=== PATIENT | female | born 1950 | race Caucasian/White ===

== ENCOUNTER 2016-10-12 12:52 | Emergency (ER) | payer MEDICARE, BC | END 2016-10-12 12:58 | disposition left against medical advice (07) | LOC: ER 12:52 | DX: Z53.9 Procedure and treatment not carried out, unspecified reason (principal); S09.90XA Unspecified injury of head, initial encounter ==

== ENCOUNTER → 2016-11-10 | Outpatient (CLI) | payer MEDICARE, BC ==
--- NOTE | 2016-11-10 14:20 | WOMENS IMAGING REPORT ---
EXAM DESCRIPTION: BILAT DIAGNOSTIC MAMMO W/CAD; U/S BREAST UNILATERAL, COMPL COMPLETED DATE/TIME: 11/10/2016 12:23 pm; 11/10/2016 1:25 pm REASON FOR STUDY: DISORDER OF BREAST IMPLANTS BILAT. N64.51; LT BREAST N64.51 T85.9XXA UNSP COMPLIC ATION OF INTERNAL PROSTH DEV/GRFT, INIT N64.51 INDURATION OF BREAST COMPARISON: None. TECHNIQUE: Bilateral whole breast CC and MLO mammograms, left breast 90 mediolateral view mammogram , bilateral implant displaced CC and MLO mammograms. Because of the presentation of left breast firmness, ultrasound was also performed on the left side. LIMITATIONS: None. FINDINGS: IMPLANTS: Bilateral subglandular implants. Dense peripheral rim implant calcification lef t greater than right. RIGHT BREAST MASSES: No suspicious masses. CALCIFICATIONS: No new or suspicious calcifications. ARCHITECTURAL DISTORTION: None. DEVELOPING DENSITY: None. ASYMMETRY: None noted. OTHER: No other significant findings. LEFT BREAST MASSES: No suspicious masses. CALCIFICATIONS: No new or suspicious calcifications. ARCHITECTURAL DISTORTION: None. DEVELOPING DENSITY: None. ASYMMETRY: None noted. OTHER: No other significant findings. Read with the assistance of CAD, R2 repairer and checker version 9.2 Left breast ultrasound: Ultrasound of the left breast was performed. No cysts. No solid nodules or worrisome acoustic absor ption in the breast parenchyma itself. There is dense peripheral capsular calcification around the l eft breast implant. IMPRESSION: No mammographic evidence for malignancy right breast. No mammographic or sonographic evidence for malignancy left breast. BREAST DENSITY: b. There are scattered areas of fibroglandular density. BIRAD: 2 Benign findings. RECOMMENDATION: RECOMMENDED FOLLOW UP: Please continue bilateral mammography in October 2017. Consider bilateral tomosynthesis SPECIFIC INTERVENTION/IMAGING/CONSULTATION RECOMMENDED:No additional intervention/ imaging/consultati on needed at this time. COMMUNICATION:Patient notified by letter COMMENT: The patient has been notified of the results by letter per MQSA requirements. Additional no tification policies are in place for contacting patient with suspicious or incomplete findings. Quality ID #[id number]: The [employer] recommends an annual screening mammogram for women aged 40 years or over. This facility utilizes a reminder system to ensure that all patients receive reminder letters, and/or direct phone calls for appointments. This includes reminders for routine scr eening mammograms, diagnostic mammograms, or other Breast Imaging Interventions when appropriate. Th is patient will be placed in the appropriate reminder system. The [employer] (ACR) has developed recommendations for screening MRI of the breast s in certain patient populations, to be used in conjunction with mammography. Breast MRI surveillanc e may be appropriate for women with more than 20% lifetime risk of developing breast cancer as deter mined by genetic testing, significant family history of the disease, or history of mantle radiation f or Hodgkins Disease. ACR Practice Guidelines 2008. TECHNICAL DOCUMENTATION: FINDING NUMBER: (1) ASSESSMENT: (1) JOB IDl [id number] [employer]- All Rights Reserved
== END ==
LOC: WI 11:52
PROVIDERS: ATTEND Physician Assistant
DX: T85.9XXA Unspecified complication of internal prosthetic device, implant and graft, initial encounter (principal); N64.51 Induration of breast
CPT/HCPCS: 76641; G0204; 77066

== ENCOUNTER → 2018-10-28 | Outpatient (CLI) | payer MEDICARE, BC ==
--- NOTE | 2018-10-28 08:18 | WOMENS IMAGING REPORT ---
EXAM DESCRIPTION: U/S ABDOMEN TOTAL COMPLETED DATE/TIME: 10/28/2018 8:00 am REASON FOR STUDY: R10.13 EPIGASTRIC PAIN R10.13 EPIGASTRIC PAIN COMPARISON: None. TECHNIQUE: Dynamic and static grayscale images acquired of the abdomen and recorded on PACS. Additio nal selected color Doppler and spectral images recorded. Note: Study does not meet criteria for complete doppler/duplex scan LIMITATIONS: None. FINDINGS: PANCREAS: Majority the pancreas is obscured by overlying bowel gas. LIVER: No masses. Echotexture normal. LIVER VASCULATURE: Normal directional flow of the main portal vein and hepatic veins. GALLBLADDER: No stones. Normal wall thickness. No pericholecystic fluid. ULTRASOUND-DETECTED MAY'S SIGN: Negative. INTRAHEPATIC DUCTS AND COMMON DUCT: CBD and intrahepatic ducts normal caliber. No filling defects. INFERIOR VENA CAVA: Obscured by overlying bowel gas. AORTA: Obscured by overlying bowel gas. RIGHT KIDNEY: Normal size. Normal echogenicity. No solid or suspicious masses. No hydronephros is. No calcifications. LEFT KIDNEY: Normal size. Normal echogenicity. No solid or suspicious masses. No hydronephrosi s. No calcifications. SPLEEN: Normal size. No solid masses. PERITONEAL AND PLEURAL SPACES: No ascites or effusions. OTHER: No other significant finding. IMPRESSION: Limited study due to overlying bowel gas. No acute findings. TECHNICAL DOCUMENTATION: JOB ID: [id number] [employer]- All Rights Reserved Reading location - IP/workstation name: [email or web address]
== END ==
LOC: WI 07:28
PROVIDERS: ATTEND Internal Medicine Gastroenterology
DX: R10.13 Epigastric pain (principal)
CPT/HCPCS: 76700

== ENCOUNTER 2019-01-12 20:45 | Emergency (ER) | payer MEDICARE, BC ==
[2019-01-12] MEDS ORDERED: DEXAMETHASONE SOD PHOS INJ 10 MG/1 ML VIAL IM ONE (23:04)
[2019-01-12] MEDS ORDERED: LORATADINE 10 MG TABLET PO ONE (23:04)
[2019-01-12] MEDS ORDERED: FAMOTIDINE 20 MG TABLET PO ONE (23:04)
--- NOTE | 2019-01-12 23:17 | ER Document Report ---
ED Skin Rash/Insect Bite/Abscs - General Chief Complaint: Bee Sting Stated Complaint: WASP STING Time Seen by Provider: 01/12/19 22:27 Primary Care Provider: MIQU[facility] GAY[facility] [Provider Group] - Follow up tomorrow POLLY YARBROUGH FNP-C [Primary Care Provider] - Follow up as needed Mode of Arrival: Ambulatory Information source: Patient Notes: 68-year-old female presented to ED for complaint of 6 wants things to her left arm of about 1300. She states she was stung multiple times on the hand and forearm. She has swelling to her hand forearm wrist. She does have full range of motion of her hand. She states Benadryl often makes her jittery so she does not like to take it. She states she did take some Tylenol at home but no other medications. She states she did use some ice on it but she became scared before going to bed she wanted to be checked out. Patient is alert oriented respirations regular and unlabored there is no swelling to her lips or tongue no shortness of breath and no feeling like her throat is swelling. She said she knows the people have had a anaphylactic reaction and she is not having one. TRAVEL OUTSIDE OF THE [place] IN LAST 30 DAYS: No - HPI Patient complains to provider of: Insect sting Onset: This afternoon Onset/Duration: Gradual Severity: Mild Pain Level: 2 Skin Character: Erythema - Bee stings to left hand and forearm Skin Temperature: Warm Quality of rash: Burning Identify cause: Yes - Bee stings Exacerbated by: Denies Relieved by: Denies Similar symptoms previously: Yes Recently seen / treated by doctor: No - Related Data Allergies/Adverse Reactions: acetaminophen [From Percocet] Allergy (Verified 04/14/16 11:40) oxycodone [From Percocet] Allergy (Verified 04/14/16 11:40) Past Medical History - General Information source: Patient - Social History Smoking Status: Never Smoker Chew tobacco use (# tins/day): No Frequency of alcohol use: Rare Drug Abuse: None Family History: Reviewed & Not Pertinent, Hypertension Patient has suicidal ideation: No Patient has homicidal ideation: No - Past Medical History Cardiac Medical History: Reports: Hx Hypertension Pulmonary Medical History: Reports: None EENT Medical History: Reports: Eyes - Glaucoma Neurological Medical History: Reports: None Endocrine Medical History: Reports: Hx Hypothyroidism Renal/ Medical History: Reports: None Malignancy Medical History: Reports: None GI Medical History: Reports: Hx Gastroesophageal Reflux Disease Musculoskeletal Medical History: Reports Hx Arthritis Skin Medical History: Reports None Psychiatric Medical History: Reports: Hx Anxiety, Hx Depression Traumatic Medical History: Reports: None Infectious Medical History: Reports: None Past Surgical History: Reports: Other - Breast augmentation - Immunizations Hx Diphtheria, Pertussis, Tetanus Vaccination: Yes Review of Systems - Review of Systems Constitutional: No symptoms reported EENT: No symptoms reported. denies: Throat pain, Difficulty swallowing, Mouth swelling Cardiovascular: No symptoms reported Respiratory: No symptoms reported. denies: Cough, Short of breath, Wheezing Gastrointestinal: No symptoms reported Genitourinary: No symptoms reported Female Genitourinary: No symptoms reported Musculoskeletal: No symptoms reported Skin: Other - Swelling redness to the left hand and forearm from red wasp stings x6 Hematologic/Lymphatic: No symptoms reported Neurological/Psychological: No symptoms reported -: Yes All other systems reviewed and negative Physical Exam - Vital signs Vitals: Temp Pulse Resp BP Pulse Ox 97.8 F 77 18 142/78 H 99 01/12/19 20:49 01/12/19 20:49 01/12/19 20:49 01/12/19 20:49 01/12/19 20:49 Interpretation: Normal - General General appearance: Appears well, Alert - HEENT Head: Normocephalic, Atraumatic Eyes: Normal Pupils: PERRL Ears: Normal External canal: Normal Tympanic membrane: Normal Sinus: Normal Nasal: Normal Mouth/Lips: Normal Mucous membranes: Normal Pharynx: Normal Neck: Normal - Respiratory Respiratory status: No respiratory distress Chest status: Nontender Breath sounds: Normal Chest palpation: Normal - Cardiovascular Rhythm: Regular Heart sounds: Normal auscultation Murmur: No - Abdominal Inspection: Normal Distension: No distension Bowel sounds: Normal Tenderness: Nontender Organomegaly: No organomegaly - Back Back: Normal, Nontender - Extremities General upper extremity: Normal inspection, Nontender, Normal color, Normal ROM, Normal temperature General lower extremity: Normal inspection, Nontender, Normal color, Normal ROM, Normal temperature, Normal weight bearing. No: Fernanda's sign - Neurological Neuro grossly intact: Yes Cognition: Normal Orientation: AAOx4 Oz Coma Scale Eye Opening: Spontaneous Oz Coma Scale Verbal: Oriented Oz Coma Scale Motor: Obeys Commands Oz Coma Scale Total: 15 Speech: Normal Motor strength normal: LUE, RUE, LLE, RLE Sensory: Normal - Psychological Associated symptoms: Normal affect, Normal mood - Skin Skin Temperature: Warm Skin Moisture: Dry Skin Color: Normal Location of irregularity: Extremities - Left hand and forearm Character of irregularity: Erythematous Irregularity with: Swelling, Tenderness Course - Re-evaluation Re-evalutation: 01/12/19 23:25 Patient states she was stung by red wasp about 6 times around 1 PM. She states she has had burning and pain with swelling and redness to the left hand and forearm. She was treated with Decadron IM, Pepcid, Claritin, and Tylenol in the emergency room. She is not having any signs or symptoms of a anaphylactic reaction. She was instructed to follow-up with her primary care tomorrow. Patient did verbalize understanding and agreement with treatment plan. Patient was discharged home. - Vital Signs Vital signs: Temp Pulse Resp BP Pulse Ox 98.0 F 67 18 136/68 H 100 01/12/19 23:32 01/12/19 23:32 01/12/19 23:32 01/12/19 23:32 01/12/19 23:32 Discharge - Discharge Clinical Impression: Bee sting Qualifiers: Encounter type: initial encounter Injury intent: accidental or unintentional Qualified Code(s): T63.441A - Toxic effect of venom of bees, accidental (unintentional), initial encounter Condition: Stable Disposition: HOME, SELF-CARE Additional Instructions: Insect Sting You've been stung by an insect. The venom can cause pain, redness, and swelling. Right after the sting, we sometimes use adrenaline to reduce the reaction to the venom. This also stops any allergic reaction. You should apply cold compresses, rest and elevate the affected part, and take antihistamines. A more severe, itchy red swelling sometimes develops the next day. This is a local allergic reaction to the venom. This local allergy isn't dangerous. We treat it with cortisone-type medicine and antihistamines. Sometimes we use antibiotics if we're worried about infection. If you develop a fever, chills, a red streak, or swollen glands in the area of the bite, infection may be starting. Return at once. Insect stings from the bee and hornet family may cause a severe allergic reaction. Symptoms include hoarseness, shortness of breath, general redness of the skin, general itching, or lightheadedness. If any of these symptoms occur, you'll be treated with adrenalin and cortisone-like steroids. You should carry an "Anaphylaxis Kit" with you in the summer months so you can administer these medications to yourself before getting emergency medical care. STEROID MEDICATION INJECTION: You have been given an injection of medicine of the cortisone/steroid class. This medication is used to control inflammation or allergy. It is often continued as a pill for a short period of time, until the acute process subsides. There are usually no side effects from short-term use of cortisone-like medications. Some persons feel an increased sense of well-being and are not sleepy at bedtime. Long-term use of cortisone medications is best avoided, unless required for a severe condition. If your condition does not remit, or relapses after the course of corticosteroid medication, you should consult your physician. ACID-SUPPRESSING MEDICATION: You have a prescription for medicine which reduces the stomach's secretion of acid. Examples include Zantac, Tagament, and Pepcid. These drugs are often used to allow healing of ulcers or esophagitis. They may be needed to prevent recurrence of ulcers in some patients, or to prevent damage from acid reflux in the esophagus. Take all medication as prescribed, even after the pain is gone. Regular antacids may be added as needed if you have symptoms while taking this medicine. These medications sometimes are prescribed for allergic reactions because they have anti-histaminic effects and relieve the rash and itching of the reaction. There are usually no side effects from this medication. But, in rare cases and particularly in the elderly, serious problems can occur. Contact your doctor if there is fever, rash, hallucinations, confusion, or unusual bruising. Contact your doctor at once if you develop lightheadedness, black or bloody stool, or bloody vomitus. ANTIHISTAMINES: An antihistamine has been given and/or prescribed to control your symptoms. Antihistamines are used for many reasons, including itching, watering eyes, runny nose, allergic swelling, hives, and insect stings. Antihistamines may cause drowsiness, especially with the first dose. Do not operate machinery or drive while under the effects of the medication. Other common side effects include dry mouth and eyes. In older persons, antihistamines can occasionally cause urinary retention, constipation, and trouble focusing the eyes. Do not combine the medication with alcohol, or with any other medication without talking to your doctor. USE OF DIPHENHYDRAMINE: The use of diphenhydramine (Benadryl) has been recommended to control allergic symptoms. The 25 mg strength is available over- the-counter, as well as the elixir. This antihistamine is used for many symptoms. It's useful for itching, watering eyes and nose, allergic swelling, hives, and insect stings. The medication can be repeated four times daily. Age Elixir (12.5 mg/tsp) 25 mg pill 2-3 yr 1/2 tsp 4-8 yr 1 tsp 9-14 yr 2 tsp one tab adult 1-2 tabs Antihistamines may cause drowsiness, especially with the first dose. Do not operate machinery or drive while under the effects of the medication. Do not combine the medication with alcohol, or with any other medication without talking to your doctor. Ice & Elevation Apply ice packs frequently against the painful area. Many different schedules are recommended, such as "20 minutes on, 20 minutes off" or "one hour ice, two hours rest." If you need to work, you may need to go longer between ice treatments. You should plan to have the area ice packed AT LEAST one-fourth of the time. The ice should be applied over the wrap, tape, or splint, or over a layer of cloth -- not directly against the skin. Some ice bags have a built-in cloth and can be put directly on the skin. Your injured part should be elevated as much as possible over the next 48 hours. Try to keep the injury above the level of the heart. Avoid use of the injured area. Elevation and rest will decrease the swelling. FOLLOW-UP CARE: If you have been referred to a physician for follow-up care, call the physicians office for an appointment as you were instructed or within the next two days. If you experience worsening or a significant change in your symptoms, notify the physician immediately or return to the Emergency Department at any time for re-evaluation. Forms: Elevated Blood Pressure Referrals: POLLY YARBROUGH, DIFFUSION OPERATOR-C [Primary Care Provider] - Follow up as needed [facility] [Provider Group] - Follow up tomorrow
[2019-01-12] MEDS ORDERED: ACETAMINOPHEN 325 MG TABLET PO ONE (23:18)
[2019-01-12 23:34] VITALS: BP 136/68
== END 2019-01-12 23:33 | disposition home or self-care (01) ==
LOC: ER 20:45
DX: T63.461A Toxic effect of venom of wasps, accidental (unintentional), initial encounter (principal); X58.XXXA Exposure to other specified factors, initial encounter; Z88.6 Allergy status to analgesic agent; I10 Essential (primary) hypertension
CPT/HCPCS: 99282; A9270 ×3; J1100

== ENCOUNTER → 2019-03-30 | Outpatient (CLI) | payer MEDICARE, BC ==
--- NOTE | 2019-03-30 16:19 | WOMENS IMAGING REPORT ---
EXAM DESCRIPTION: 3D SCREENING MAMMO BILAT COMPLETED DATE/TIME: 03/30/2019 1:46 pm REASON FOR STUDY: Z12.31 SCREENING MAMMO Z12.31 ENCNTR SCREEN MAMMOGRAM FOR MALIGNANT NEOPLASM OF B RE COMPARISON: 2017 EXAM PARAMETERS: Standard craniocaudal and mediolateral oblique views of each breast recorded using digital acquisition and breast tomosynthesis. Additional "push-back craniocaudal and mediolateral ob lique images acquired. Read with the assistance of CAD. .[employer] - R2 Pest Control Worker Helper Version 9.2 LIMITATIONS: None. FINDINGS: IMPLANTS: Bilateral subglandular implants. Peripherally calcified Findings present which are benign by mammographic criteria. No suspicious masses, calcifications or a rchitectural distortion. Benign mammographic findings may include one or more of the following: Smooth masses, popcorn/rim/co arse calcifications, asymmetries, post-procedure changes, and lesions with long-standing stability. IMPRESSION: BENIGN MAMMOGRAPHIC FINDINGS. BIRADS 2 BREAST DENSITY: b. There are scattered areas of fibroglandular density. BIRAD: ASSESSMENT: 2 BENIGN FINDING(S) RECOMMENDATION: ROUTINE SCREENING Please continue yearly bilateral screening mammography/tomosynthesis in March 2020 COMMENT: The patient has been notified of the results by letter per [place] requirements. Additional no tification policies are in place for contacting patient with suspicious or incomplete findings. Quality ID #[id number]: The [employer] recommends an annual screening mammogram for women aged 40 years or over. This facility utilizes a reminder system to ensure that all patients receive reminder letters, and/or direct phone calls for appointments. This includes reminders for routine scr eening mammograms, diagnostic mammograms, or other Breast Imaging Interventions when appropriate. Th is patient will be placed in the appropriate reminder system. TECHNICAL DOCUMENTATION: FINDING NUMBER: (1) ASSESSMENT: (1) JOB ID: [id number] [employer]- All Rights Reserved Reading location - IP/workstation name: [email or web address]
== END ==
LOC: WI 13:24
PROVIDERS: ATTEND Physician Assistant
DX: Z12.31 Encounter for screening mammogram for malignant neoplasm of breast (principal)
CPT/HCPCS: 77063; 77067

== ENCOUNTER 2019-11-11 13:02 | Emergency (ER) | payer MEDICARE, BC ==
--- NOTE | 2019-11-11 13:35 | ER Document Report ---
ED Medical Screen (RME) - General Chief Complaint: Numbness of Face Stated Complaint: LEFT SIDE NUMBNESS Time Seen by Provider: 11/11/19 13:16 Primary Care Provider: MADDIE JAEGER PA-C [Primary Care Provider] - Follow up as needed Notes: Patient is a 68-year-old female presents emergency department with a chief complaint of left-sided numbness and tingling. Patient states that about 3 hours prior to arrival she developed this. Patient states that her symptoms are starting to get better. Denies any weakness. Patient reports that she did have some pain to her left maxillary area 2 days ago. Exam: Alert and oriented. I have greeted and performed a rapid initial assessment of this patient. A comprehensive ED assessment and evaluation of the patient, analysis of test results and completion of medical decision making process will be conducted by an additional ED providers. TRAVEL OUTSIDE OF THE [place] IN LAST 30 DAYS: No - Related Data Allergies/Adverse Reactions: acetaminophen [From Percocet] Allergy (Verified 11/11/19 13:33) diphenhydramine [From Benadryl] Allergy (Verified 11/11/19 13:33) oxycodone [From Percocet] Allergy (Verified 11/11/19 13:33) Past Medical History - Social History Chew tobacco use (# tins/day): No Frequency of alcohol use: Occasional Drug Abuse: None - Past Medical History Cardiac Medical History: Reports: Hx Hypertension Endocrine Medical History: Reports: Hx Hypothyroidism Renal/ Medical History: Denies: Hx Peritoneal Dialysis GI Medical History: Reports: Hx Gastroesophageal Reflux Disease Musculoskeltal Medical History: Reports Hx Arthritis Psychiatric Medical History: Reports: Hx Anxiety, Hx Depression Past Surgical History: Reports: Other - Breast augmentation - Immunizations Hx Diphtheria, Pertussis, Tetanus Vaccination: Yes Physical Exam - Vital signs Vitals: Temp Pulse Resp BP Pulse Ox 98.9 F 88 18 137/85 H 100 11/11/19 13:11 11/11/19 13:11 11/11/19 13:11 11/11/19 13:11 11/11/19 13:11 Course - Vital Signs Vital signs: Temp Pulse Resp BP Pulse Ox 98.9 F 88 18 137/85 H 100 11/11/19 13:11 11/11/19 13:11 11/11/19 13:11 11/11/19 13:11 11/11/19 13:11 Doctor's Discharge - Discharge Referrals: MADDIE JAEGER PA-C [Primary Care Provider] - Follow up as needed
--- NOTE | 2019-11-11 14:06 | RADIOLOGY REPORT (SQ) ---
EXAM DESCRIPTION: CT HEAD WITHOUT IMAGES COMPLETED DATE/TIME: 11/11/2019 1:42 pm REASON FOR STUDY: left sided numbness , stroke alert. COMPARISON: CT head 05/05/2010. TECHNIQUE: Axial images acquired through the brain without intravenous contrast. Images reviewed wi th bone, brain and subdural windows. Images stored on PACS. All CT scanners at this facility use dose modulation, iterative reconstruction, and/or weight based d osing when appropriate to reduce radiation dose to as low as reasonably achievable (ALARA). [facility]: Dose Right [facility]: CareDose [facility]: Dose Right [facility]: Teradose 4D [facility]: Smart Technologies RADIATION DOSE: CT Rad equipment meets quality standard of care and radiation dose reduction techniq ues were employed. CTDIvol: 53.2 mGy. DLP: 911 mGy-cm.mGy. LIMITATIONS: None. FINDINGS: VENTRICLES: Prominent. CEREBRUM: No mass effect. No hemorrhage. No midline shift. Areas of low density in the white matte r most likely due to chronic micro-vascular ischemic change. No evidence for acute territorial infar ction. CEREBELLUM: No hemorrhage. No alteration of density. No evidence for acute infarction. EXTRAAXIAL SPACES: Age-related involutional change. No fluid collections. ORBITS AND GLOBE: Symmetrical contour of the globes. CALVARIUM: No depressed fracture. PARANASAL SINUSES: No air-fluid level. SOFT TISSUES: No hematoma. IMPRESSION: No acute intracranial hemorrhage or acute territorial infarct. Chronic changes of atrop hy and microvascular ischemia. EVIDENCE OF ACUTE STROKE: NO. COMMUNICATION The critical information above was relayed directly by me by telephone to Long patton NP, on 11/11/2019 at 13:58 hours with readback verification. TECHNICAL DOCUMENTATION: JOB ID: [id number] [facility]64 Quality ID # [id number]: Final reports with documentation of one or more dose reduction techniques (e.g., Au tomated exposure control, adjustment of the mA and/or kV according to patient size, use of iterative reconstruction technique) 2010 [employer]- All Rights Reserved Reading location - IP/workstation name: [email or web address]
[2019-11-11 14:13] LABS: ABSOLUTE BASOPHILS # (AUTO) 0.1 10^3/uL (0.0-0.2); ABSOLUTE EOSINOPHILS # (AUTO) 0.2 10^3/uL (0.0-0.6); ABSOLUTE LYMPHOCYTES (AUTO) 1.1 10^3/uL (0.5-4.7); ABSOLUTE MONOCYTES (AUTO) 0.4 10^3/uL (0.1-1.4); ABSOLUTE NEUT (AUTO) 4.4 10^3/uL (1.7-8.2); BASOPHILS % (AUTO) 0.9 % (0-2); EOSINOPHILS % (AUTO) 3.3 % (0-6); HEMOGLOBIN 12.4 g/dL (12.0-15.5); LYMPHOCYTES % (AUTO) 17.6 % (13-45); MEAN CORPUSCULAR HEMOGLOBIN 30.9 pg (27.0-33.4); MEAN CORPUSCULAR HGB CONC 34.5 g/dL (32.0-36.0); MEAN CORPUSCULAR VOLUME 89 fl (80-97); MONOCYTES % (AUTO) 7.1 % (3-13); PLATELET COUNT 402 10^3/uL (150-450); RED BLOOD COUNT 4.03 10^6/uL (3.72-5.28); RED CELL DISTRIBUTION WIDTH 13.7 % (11.5-14.0); SEGMENTED NEUTROPHILS % (AUTO) 71.1 % (42-78); TOTAL CELLS COUNTED % (AUTO) 100 %; WHITE BLOOD COUNT 6.2 10^3/uL (4.0-10.5)
[2019-11-11 14:30] LABS: ALBUMIN 4.8 g/dL (3.5-5.0); ALKALINE PHOSPHATASE 91 U/L (38-126); ANION GAP 8 (5-19); ASPARTATE AMINO TRANSFERASE 37 U/L (14-36); BILIRUBIN,TOTAL 0.4 mg/dL (0.2-1.3); BLOOD UREA NITROGEN 12 mg/dL (7-20); CALCIUM 9.5 mg/dL (8.4-10.2); CARBON DIOXIDE 26 mmol/L (22-30); CHLORIDE 96 mmol/L (98-107); GLUCOSE 99 mg/dL (75-110); POTASSIUM 4.1 mmol/L (3.6-5.0); TOTAL PROTEIN 8.1 g/dL (6.3-8.2)
[2019-11-11 14:31] LABS: PROTHROMBIN TIME 12.1 SEC (11.4-15.4)
[2019-11-11 14:32] LABS: PARTIAL THROMBOPLASTIN TIME 30.7 SEC (23.5-35.8)
[2019-11-11] MEDS ORDERED: VALACYCLOVIR HCL 500 MG TABLET PO ONE (17:24)
--- NOTE | 2019-11-11 17:31 | ER Document Report ---
ED General - General Chief Complaint: Numbness of Face Stated Complaint: LEFT SIDE NUMBNESS Time Seen by Provider: 11/11/19 13:16 Primary Care Provider: MADDIE JAEGER PA-C [NO LOCAL MD] - Follow up as needed TRAVEL OUTSIDE OF THE [place] IN LAST 30 DAYS: No - HPI Notes: This is a pleasant 68-year-old female who presents to the emergency department for evaluation of left-sided facial pain and tingling. She states that about 2 or 3 days ago she noticed some pain about the left side of her medial eyebrow. She states that it was very minimal. Today she noticed numbness and tingling to the left side of her face. She states that it almost felt like "cold water" tingled down the entire left side of her body. She states that her symptoms lasted for about half an hour and then went away. She states she is really feeling much better now. Coincidently, the patient started Neurontin about a week ago for radicular pain in her right leg. She is had no fevers or chills. She denies any difficulty seeing, speaking, swallowing. No eye pain. She is moving her arms and legs without difficulty. She has not had any medication changes lately with the exception of the addition of Neurontin. - Related Data Allergies/Adverse Reactions: acetaminophen [From Percocet] Allergy (Verified 11/11/19 13:33) diphenhydramine [From Benadryl] Allergy (Verified 11/11/19 13:33) oxycodone [From Percocet] Allergy (Verified 11/11/19 13:33) Home Medications: Effexor, Neurontin, Procardia, Synthroid, medication for glaucoma Past Medical History - General Information source: Patient - Social History Smoking Status: Never Smoker Chew tobacco use (# tins/day): No Frequency of alcohol use: Occasional Drug Abuse: None Family History: Reviewed & Not Pertinent, Hypertension - Past Medical History Cardiac Medical History: Reports: Hx Hypertension EENT Medical History: Reports: Eyes - Glaucoma Endocrine Medical History: Reports: Hx Hypothyroidism Renal/ Medical History: Denies: Hx Peritoneal Dialysis GI Medical History: Reports: Hx Gastroesophageal Reflux Disease Musculoskeletal Medical History: Reports Hx Arthritis Psychiatric Medical History: Reports: Hx Anxiety, Hx Depression Past Surgical History: Reports: Other - Breast augmentation - Immunizations Hx Diphtheria, Pertussis, Tetanus Vaccination: Yes Review of Systems - Review of Systems EENT: See HPI Neurological/Psychological: See HPI -: Yes All other systems reviewed and negative Physical Exam - Vital signs Vitals: Temp Pulse Resp BP Pulse Ox 98.9 F 88 18 137/85 H 100 11/11/19 13:11 11/11/19 13:11 11/11/19 13:11 11/11/19 13:11 11/11/19 13:11 - Notes Notes: Vital signs reviewed, please refer to chart. Head is normocephalic, atraumatic. Pupils equal round, reactive to light. No erythema to the left eye, no tearing. Neck is supple without meningismus. Heart is regular rate and rhythm. Lungs are clear to auscultation bilaterally. Abdomen is soft, nontender, normoactive bowel sounds throughout. Extremities without cyanosis, clubbing. Posterior calves are nontender. Peripheral pulses are equal. Patient is awake, alert, o riented x3. Cranial nerves II - XII are grossly intact without focal neurological deficits. Strength is plus 5 out of 5 bilateral upper and lower extremities. Sensation is intact. Reflexes symmetrical. Intact [id number], rapid alternating movements, [id number]. Examination of the skin yields vesiculo-papular and erythematous rash over the left side of the scalp, into the forehead. She does have one lesion just inferior to the medial aspect of the brow. It is consistent with zoster. Course - Re-evaluation Re-evalutation: 11/11/19 17:28 Patient presents to the emergency department for evaluation. She had some left- sided facial tingling. On exam, it is clear that the patient is exhibiting signs of zoster. She has an otherwise completely normal neurological exam. My suspicion is that the Neurontin was helping with the painful symptoms. She did not note a rash, and her pain only started 2 to 3 days ago, so I do suspect that she will have improvement with Valtrex. She is given her first dose here. She has an icu nurse, and has an appointment scheduled in about 2 weeks. I explained her she needs to call her icu nurse on Wednesday to see if this can be moved up, she needs to be evaluated more closely by ophthalmology and followed to keep any lesions that could appear in her eye and check. She is told not to rub her eye. She is told to stay away from immunocompromised and people. She voiced understanding. Otherwise she is to continue her Neurontin as prescribed, as it is likely helping with her pain. She is to return to the ED with worsening or new concerning symptoms of any sort. - Vital Signs Vital signs: Temp Pulse Resp BP Pulse Ox 98.9 F 88 15 130/79 H 99 11/11/19 13:11 11/11/19 14:00 11/11/19 15:01 11/11/19 15:00 11/11/19 15:01 - Laboratory Result Diagrams: 11/11/19 14:00 11/11/19 14:00 Laboratory results interpreted by me: 11/11/19 14:00 Sodium 129.8 L Chloride 96 L AST 37 H - Diagnostic Test Radiology reviewed: Reports reviewed Radiology results interpreted by me: 11/11/19 17:[address] 11/11/19 13:32 IMPRESSION: No acute intracranial hemorrhage or acute territorial infarct. Chronic changes of atrophy and microvascular ischemia. EVIDENCE OF ACUTE STROKE: NO. - EKG Interpretation by Me Additional EKG results interpreted by me: 11/11/19 17:30 Sinus mechanism with a rate of 85 bpm. Left axis deviation. Normal intervals. No acute ST changes concerning for ischemia or infarction. Discharge - Discharge Clinical Impression: Herpes zoster Condition: Stable Disposition: HOME, SELF-CARE Instructions: Ophthalmic Zoster (Shingles of the Eye) ([facility]), Shingles ([facility]) Additional Instructions: Please take all of the Valtrex as prescribed until it is gone. You have been given information about shingles in the eye, but there are no visible lesions at this time. Please follow-up very closely with your icu nurse as discussed for more in-depth exam. Continue your Neurontin, it is likely helping with the pain associated with a shingles. If you develop vision changes, worsened rash, or any other new or concerning symptoms, please return immediately to the ER for further evaluation. Prescriptions: Valacyclovir HCl [Valtrex] 1,000 mg PO TID #20 tablet Referrals: MADDIE JAEGER PA-C [NO LOCAL MD] - Follow up as needed
[2019-11-11 17:56] VITALS: BP 156/87
--- NOTE | 2019-11-11 20:55 | EKG REPORT ---
SEVERITY:- OTHERWISE NORMAL ECG - SINUS RHYTHM BORDERLINE LEFT AXIS DEVIATION : Confirmed by: Gustabo Reyes 11-Nov-2019 20:54:32
== END 2019-11-11 17:57 | disposition home or self-care (01) ==
LOC: ER 13:02
DX: B02.9 Zoster without complications (principal); R51 Headache; R20.2 Paresthesia of skin; R20.0 Anesthesia of skin; M54.10 Radiculopathy, site unspecified; I10 Essential (primary) hypertension; H40.9 Unspecified glaucoma; F41.9 Anxiety disorder, unspecified; F32.9 Major depressive disorder, single episode, unspecified; E03.9 Hypothyroidism, unspecified; Z79.899 Other long term (current) drug therapy; Z88.8 Allergy status to other drugs, medicaments and biological substances; Z88.6 Allergy status to analgesic agent; Z88.5 Allergy status to narcotic agent
CPT/HCPCS: 93005; 99284; 36415; 85025; 85610; 85730; 80053; 70450; 93010; A9270

== ENCOUNTER → 2019-11-21 | Outpatient (CLI) | payer MEDICARE, BC ==
--- NOTE | 2019-11-21 07:40 | RADIOLOGY REPORT (SQ) ---
MRI of the lumbar spine: 11/21/2019 6:36 AM CDT TECHNIQUE: Sagittal T1, T2, STIR; axial T1 and T2-weighted images of the lumbar spine were obtained. HISTORY: 68-year old patient with lower back pain. COMPARISON: None available. FINDINGS: The visualized vertebral bodies appear to be well aligned. No abnormal marrow signal is seen to suggest an acute injury or an infiltrative process. The visualized paravertebral soft tissues appear unremarkable. There is a compression deformity at the superior endplate of L1 demonstrating at least 50% loss of height. Is a compression deformity of the superior endplate of L3 demonstrating at least 25% loss of height. No abnormal signal is seen to suggest that these are acute. Mild multilevel intervertebral disc space narrowing is seen. The conus ends at L2. No abnormal cord signal is seen. Multilevel anterior and lateral osteophytes are seen at the lumbar spine. There are cysts seen within the liver and superior pole the left kidney. There are prominent bilateral extrarenal pelvises. T12-L1: The superior endplate of L1 indents upon the ventral aspect of the thecal sac. No significant thecal sac compression is seen. There is mild bilateral neural foraminal narrowing. L1-2: No significant neural foraminal narrowing or thecal sac compression is seen. L2-3: There is a disc osteophyte which indents upon the ventral aspect of the thecal sac. No significant thecal sac compression is seen. Mild bilateral neural foraminal narrowing is seen. L3-4: There is moderate facet and ligamentous hypertrophy with a diffuse central disc protrusion. This narrows the thecal sac to 8 to 9 mm in AP dimension. Mild bilateral neural foraminal narrowing is seen. L4-5: There is a focal central disc protrusion with an annular tear. No significant thecal sac compression is seen. There is mild bilateral neural foraminal narrowing. L5-S1: There is diffuse disc protrusion noted at this level which contributes to moderate left and mild right neural foraminal narrowing. No significant thecal sac compression is seen. There is a focal central annular tear present. IMPRESSION: There are multilevel degenerative changes seen of the spine. There are compression deformities of L1 and L3 which appear to be remote. Multilevel neural foraminal narrowing or thecal sac compression is seen, as described above..
== END ==
LOC: RAD 06:17
PROVIDERS: ATTEND Nurse Practitioner Family
DX: M51.16 Intervertebral disc disorders with radiculopathy, lumbar region (principal); R32 Unspecified urinary incontinence; R15.9 Full incontinence of feces
CPT/HCPCS: 72148